=== PATIENT | female | born 1990 | race Caucasian/White ===

== ENCOUNTER 2016-11-23 17:23 | Inpatient (IN) | payer MEDICAID, OTHER ==
[~2016-11-23] VITALS: Ht 154.9 cm; Wt 68.0 kg
[~2016-11-23 17:23] MED LIST: FERR325E14 PO; PREN-385 PO
[2016-11-23] MEDS ORDERED: LACTATED RINGERS 1,000 ML IV SCH (18:06)
[2016-11-23] MEDS ORDERED: OXYTOCIN 10 UNITS/ML VIAL IM SCH (18:10)
[2016-11-23] MEDS ORDERED: METHYLERGONOVINE 0.2 MG/ML AMP IM PRN (18:10)
[2016-11-23] MEDS ORDERED: PROMETHAZINE 25 MG/ML VIAL IVP PRN (18:10)
[2016-11-23] MEDS ORDERED: CARBOPROST 250 MCG/ML AMP IM PRN (18:10)
[2016-11-23] MEDS ORDERED: NALBUPHINE HYDROCHLORIDE 10 MG/ML VIAL IVP PRN (18:10)
[2016-11-23] MEDS ORDERED: OXYTOCIN 20 UNITS/LR PREMIX 1,000 ML IV SCH (18:15)
[2016-11-23 18:29] VITALS: BP 97/55
[2016-11-23 19:20] LABS: APPEARANCE,URINE CLOUDY (CLEAR); BILIRUBIN,URINE NEGATIVE (NEGATIVE); BLOOD, URINE NEGATIVE (NEGATIVE); COLOR,URINE YELLOW (YELLOW); LEUKOCYTE ESTERASE ,URINE NEGATIVE (NEGATIVE); NITRITE, URINE NEGATIVE (NEGATIVE); PH,URINE 7.5 (5.0-9.0); PROTEIN,URINE NEGATIVE (NEGATIVE); UGLUCOSE NEGATIVE (NEGATIVE); UROBILINOGEN,URINE 0.2 EU/dL (0.2 - 1)
[2016-11-23 19:21] LABS: BASOPHILS % (AUTO) 0.5 % (0.0-2.0); EOSINOPHILS # (AUTO) 0.3 K/uL (0-0.4); EOSINOPHILS % (AUTO) 2.8 % (0.0-4.0); HEMATOCRIT 35.5 % (36-48); HEMOGLOBIN 11.8 g/dL (12.0-16.0); LYMPHOCYTES # (AUTO) 1.6 K/uL (2.5-16.5); LYMPHOCYTES % (AUTO) 16.9 % (20.5-51.1); MEAN CORPUSCULAR HEMOGLOBIN 31 pg (27-31); MEAN CORPUSCULAR HGB CONC 33 g/dL (33-37); MEAN CORPUSCULAR VOLUME 92 fL (80-94); MONOCYTES # (AUTO) 0.7 K/uL (0.8-1.0); MONOCYTES % (AUTO) 6.8 % (1.7-9.3); NEUTROPHILS # (AUTO) 7.2 K/uL (1.8-7.7); PLATELET COUNT (AUTO) 224 K/uL (140-450); RED BLOOD CELL COUNT(AUTO) 3.85 MIL/uL (4.20-5.40); RED CELL DISTRIBUTION WIDTH 13.2 % (11.6-13.7); WHITE BLOOD COUNT (AUTO) 9.8 K/uL (4.8-10.8)
[2016-11-23 19:25] LABS: BACTERIA,URINE FEW /HPF (None Seen); URINE AMORPHOUS PHOSPHATES 4+ /HPF (None Seen)
[2016-11-23 19:26] LABS: RBC,URINE 0-5 /HPF (0-5); WBC,URINE 0-5 /HPF (0-5)
[2016-11-23] MEDS ORDERED: MISOPROSTOL 25 MCG TAB VG SCH (19:30)
[2016-11-23 19:35] LABS: ANION GAP 15.4 (8-16); CALCIUM 8.6 mg/dL (8.5-10.1); CARBON DIOXIDE 24.3 mmol/L (21-32); CREATININE 0.5 mg/dL (0.6-1.3); POTASSIUM 3.7 mmol/L (3.5-5.1)
[2016-11-23 19:40] LABS: ALBUMIN 2.6 g/dL (3.4-5.0); TOTAL BILIRUBIN 0.2 mg/dL (0.0-1.0); TOTAL PROTEIN, SERUM 6.7 g/dL (6.4-8.2)
[2016-11-23] MEDS ORDERED: ROPIVACAINE 0.2%/NS PREMIX 250 ML EPI ONE (22:44)
[2016-11-24] MEDS ORDERED: LIDOCAINE 1% 50 ML ONE (00:39)
[2016-11-24] MEDS ORDERED: OXYTOCIN 10 UNITS/ML VIAL ONE (00:41)
[2016-11-24] MEDS ORDERED: OXYTOCIN 20 UNITS/LR PREMIX 1,000 ML IV ONE (00:51)
[2016-11-24] MEDS ORDERED: OXYTOCIN 10 UNITS/ML VIAL IM SCH (01:05)
[2016-11-24] MEDS ORDERED: OXYTOCIN 20 UNITS/LR PREMIX 1,000 ML IV SCH (01:17)
[2016-11-24] MEDS ORDERED: MEASLES, MUMPS, AND RUBELLA 1 VIAL SQVAC PRN (01:20)
[2016-11-24] MEDS ORDERED: BISACODYL 5 MG TABEC PO PRN (01:20)
[2016-11-24] MEDS: ACETAMINOPHEN 325 MG TAB PO PRN ×2 (06:05→12:11)
--- NOTE | 2016-11-24 09:00 | NUR ---
PATIENT HAS BEEN SCREENED AND CATEGORIZED LOW NUTRITION RISK. PATIENT WILL BE SEEN WITHIN 7 DAYS OF ADMISSION. 11/30/[address]
[2016-11-25] MEDS: ACETAMINOPHEN 325 MG TAB PO PRN (00:39)
[2016-11-25 07:21] LABS: BASOPHILS # (AUTO) 0.1 K/uL (0.00-0.22); EOSINOPHILS # (AUTO) 0.2 K/uL (0-0.4); HEMATOCRIT 34.6 % (36-48); HEMOGLOBIN 11.4 g/dL (12.0-16.0); LYMPHOCYTES # (AUTO) 2.1 K/uL (2.5-16.5); MEAN CORPUSCULAR HEMOGLOBIN 31 pg (27-31); MEAN CORPUSCULAR HGB CONC 33 g/dL (33-37); MEAN CORPUSCULAR VOLUME 94 fL (80-94); MONOCYTES # (AUTO) 0.6 K/uL (0.8-1.0); MONOCYTES % (AUTO) 5.4 % (1.7-9.3); NEUTROPHILS # (AUTO) 7.7 K/uL (1.8-7.7); NEUTROPHILS % (AUTO) 71.6 % (42.2-75.2); PLATELET COUNT (AUTO) 201 K/uL (140-450); RED BLOOD CELL COUNT(AUTO) 3.67 MIL/uL (4.20-5.40); RED CELL DISTRIBUTION WIDTH 13.1 % (11.6-13.7); WHITE BLOOD COUNT (AUTO) 10.7 K/uL (4.8-10.8)
[2016-11-25] MEDS: oxyCODONE/APAP 5/325 MG 1 TAB TAB PO PRN ×2 (08:17→14:10)
[2016-11-26] MEDS: ACETAMINOPHEN 325 MG TAB PO PRN (03:50)
[2016-11-26] MEDS ORDERED: ACET-9800 PO (10:02)
== END 2016-11-26 14:10 | disposition home or self-care (01) | DRG 560 ==
LOC: MLD 17:23 → MFCC 11-24 04:57
PROVIDERS: ADMIT Obstetrics & Gynecology; ATTEND Obstetrics & Gynecology
PROC: 10E0XZZ Delivery of Products of Conception, External Approach (ICD-10-PCS; principal; 2016-11-24)
PROC: 10907ZC Drainage of Amniotic Fluid, Therapeutic from Products of Conception, Via Natural or Artificial Opening (ICD-10-PCS; 2016-11-24)
PROC: 00HU33Z Insertion of Infusion Device into Spinal Canal, Percutaneous Approach (ICD-10-PCS; 2016-11-24)
PROC: 3E0R3CZ (ICD-10-PCS; 2016-11-24)
PROC: 3E0234Z Introduction of Serum, Toxoid and Vaccine into Muscle, Percutaneous Approach (ICD-10-PCS; 2016-11-24)
DX: O80 Encounter for full-term uncomplicated delivery (principal); Z23 Encounter for immunization; Z37.0 Single live birth; Z3A.40 40 weeks gestation of pregnancy
CPT/HCPCS: 36415; 51702; 59409; 76805; 80053; 81001; 85025; 86592; 86886; 86900; 86901; 90715; J2001; J2590; J2795; J7120; Q0092